=== PATIENT | male | born 1955 | race Caucasian/White ===

== ENCOUNTER 2016-06-08 13:34 | Inpatient (IN) | payer BC ==
[2016-06-08] VITALS (9 sets, daily range): BP systolic 99–149; BP diastolic 55–98
[~2016-06-08] VITALS: Ht 180.3 cm; Wt 111.5 kg
[~2016-06-08 13:34] MED LIST: AMBIEN5 MG PO; ANTIVERT25 MG PO; ASPIRIN81 M2 PO; COREG12.5 M1 PO; ENDOCET 5-3251 EACH PO; GARCINIA CAMBO1 EACH PO; GLUCOSAMINE &1 EAC1 PO; LIPITOR10 MG PO; LISINOPRIL10 MG PO; PENTOXIFYLLINE400 MG PO; PROSCAR5 MG PO; ZOFRAN4 MG PO
[2016-06-08 14:04] LABS: HEMATOCRIT 25.9 % (38.0-50.0); MCH 27.4 PG (29.0-34.0); MCHC 31.3 G/DL (30.0-36.0); MCV 87.5 FL (86-99); MEAN PLAT.VOLUME 9.4 uM^3 (9.0-12.4); PLATELET COUNT 211 K/uL (156-360); RBC DIS.WIDTH-CV 13.3 % (11.8-14.6); RBC DIS.WIDTH-SD 42.6 % (39-53); RED BLOOD COUNT 2.96 M/uL (4.00-5.50); WHITE BLOOD COUNT 7.7 K/uL (4.1-10.2)
[2016-06-08 14:13] LABS: CHLORIDE 104 mEq/L (99-109); POTASSIUM 4.5 mEq/L (3.7-5.4); SODIUM 137 mEq/L (136-147)
[2016-06-08 14:15] LABS: GLUCOSE 108 mg/dL (70-99)
[2016-06-08 14:16] LABS: ANION GAP 8 MEQ/L (2-14)
[2016-06-08 14:19] LABS: GFR ESTIMATE (CALCULATED) > 59 mL/min/; UREA NITROGEN (BUN) 20 mg/dL (9-23)
[2016-06-08 14:25] LABS: TROP-I INTERPRETATION NEGATIVE
[2016-06-08] MEDS ORDERED: COREG25 M1 PO (15:29)
[2016-06-08] MEDS ORDERED: LO-DOSE ASPIRIN81 M2 PO (15:29)
[2016-06-08] MEDS ORDERED: SPIRIVA RESPIMAT4 GM IH (15:30)
[2016-06-08] MEDS ORDERED: AMBIEN10 MG PO (15:30)
[2016-06-08 16:24] LABS: TROP-I INTERPRETATION NEGATIVE; TROPONIN-I 0.11 ng/mL (0.0-0.30)
[2016-06-08 21:40] LABS: HEMATOCRIT 26.7 % (38.0-50.0); MCV 86.1 FL (86-99)
[2016-06-08 22:01] LABS: TROP-I INTERPRETATION NEGATIVE; TROPONIN-I 0.09 ng/mL (0.0-0.30)
[2016-06-09] VITALS (7 sets, daily range): BP systolic 95–130; BP diastolic 53–67
[2016-06-09 07:49] LABS: HEMATOCRIT 29.6 % (38.0-50.0); INTER. NORMALIZED RATIO 1.1; MCH 27.2 PG (29.0-34.0); MCHC 31.8 G/DL (30.0-36.0); MCV 85.8 FL (86-99); PLATELET COUNT 179 K/uL (156-360); PROTHROMBIN TIME 11.7 (9.2-11.2); PTT 28.7 (25-32); RBC DIS.WIDTH-CV 13.7 % (11.8-14.6); RBC DIS.WIDTH-SD 42.7 % (39-53); RED BLOOD COUNT 3.45 M/uL (4.00-5.50)
[2016-06-09 08:01] LABS: ANION GAP 12 MEQ/L (2-14); CHLORIDE 104 MEQ/L (99-109); GFR ESTIMATE (CALCULATED) > 59 mL/min/; GLUCOSE 92 mg/dL (70-99); SAMPLE HEMOLYSIS CHECK 0; SAMPLE ICTERIC CHECK 0; SAMPLE LIPEMIA CHECK 0; SODIUM 141 MEQ/L (136-147); UREA NITROGEN (BUN) 15 mg/dL (9-23)
[2016-06-10 00:27] VITALS: BP 107/56
[2016-06-10 04:08] VITALS: BP 78/38
[2016-06-10 05:47] VITALS: BP 80/42
[2016-06-10 07:52] LABS: EOSINOPHIL (%) 1.8 % (0-5); EOSINOPHIL COUNT 0.1 K/uL (0-0.3); HEMATOCRIT 31.6 % (38.0-50.0); IMMATURE GRANULOCYTE (%) 0.4 % (0.0-0.7); INSTRUMENT ABS NEUTROPHIL CT 3.6 K/uL; LYMPHOCYTE COUNT 1.4 K/uL (1.0-2.8); MCH 27.1 PG (29.0-34.0); MCHC 31.3 G/DL (30.0-36.0); MCV 86.6 FL (86-99); MEAN PLAT.VOLUME 10.6 uM^3 (9.0-12.4); MONOCYTE (%) 9.8 % (3-12); MONOCYTE COUNT 0.6 K/uL (0-0.8); NEUTROPHIL (%) 63.4 % (45-76); NEUTROPHIL COUNT 3.6 K/uL (1.8-6.4); PLATELET COUNT 188 K/uL (156-360); RBC DIS.WIDTH-CV 13.5 % (11.8-14.6); RBC DIS.WIDTH-SD 42.9 % (39-53); RED BLOOD COUNT 3.65 M/uL (4.00-5.50); WHITE BLOOD COUNT 5.7 K/uL (4.1-10.2)
[2016-06-10 08:30] LABS: ANION GAP 8 MEQ/L (2-14); CHLORIDE 104 MEQ/L (99-109); GFR ESTIMATE (CALCULATED) > 59 mL/min/; GLUCOSE 99 mg/dL (70-99); POTASSIUM 4.7 MEQ/L (3.7-5.4); SAMPLE HEMOLYSIS CHECK 0; SAMPLE ICTERIC CHECK 0; SAMPLE LIPEMIA CHECK 0; SODIUM 141 MEQ/L (136-147); UREA NITROGEN (BUN) 15 mg/dL (9-23)
[2016-06-10 08:42] VITALS: BP 127/69
[2016-06-10 10:56] VITALS: BP 108/66
[2016-06-10] MEDS ORDERED: PANTOPRAZOLE SO40 MG PO (11:59)
[2016-06-10] MEDS ORDERED: COREG12.5 M1 PO (11:59)
[2016-06-10] MEDS ORDERED: LISINOPRIL5 MG PO (11:59)
== END 2016-06-10 13:00 | disposition home or self-care (01) | DRG 394 ==
LOC: EME 13:34 → 5SOUTH 15:50 → EDOF 15:50 → 5SOUTH 18:31
PROVIDERS: Internal Medicine Gastroenterology; Nurse Practitioner Family; Physician Assistant
DX: K64.9 Unspecified hemorrhoids (principal); K92.2 Gastrointestinal hemorrhage, unspecified; K25.3 Acute gastric ulcer without hemorrhage or perforation; K92.1 Melena; D64.9 Anemia, unspecified; J44.9 Chronic obstructive pulmonary disease, unspecified; I25.10 Atherosclerotic heart disease of native coronary artery without angina pectoris; I10 Essential (primary) hypertension; E78.5 Hyperlipidemia, unspecified; I73.9 Peripheral vascular disease, unspecified; K80.20 Calculus of gallbladder without cholecystitis without obstruction; E66.9 Obesity, unspecified; Z68.34 Body mass index [BMI] 34.0-34.9, adult; G89.29 Other chronic pain; I25.2 Old myocardial infarction; Z95.810 Presence of automatic (implantable) cardiac defibrillator; Z95.1 Presence of aortocoronary bypass graft
CPT/HCPCS: 71020; 80048; 80069; 84484; 85014; 85018; 85025; 85027; 85610; 85730; 86850; 86900; 86901; 86920; 88305; 88342 TC; 93005; 94640; 94640 76; 99281; 99285; C9113; J2250; J3010; J7030; P9016

== ENCOUNTER 2017-02-20 10:44 | Emergency (ER) | payer BC ==
[~2017-02-20] VITALS: Ht 177.8 cm; Wt 112.4 kg
[~2017-02-20 10:44] MED LIST changes: +AMBIEN10 MG PO; +COREG25 M1 PO; +LISINOPRIL5 MG PO; +LO-DOSE ASPIRIN81 M2 PO; +PANTOPRAZOLE SO40 MG PO; +SPIRIVA RESPIMAT4 GM IH
[2017-02-20 12:06] LABS: HEMATOCRIT 30.2 % (38.0-50.0); MCH 27.7 PG (29.0-34.0); MCHC 32.8 G/DL (30.0-36.0); MCV 84.6 FL (86-99); PLATELET COUNT 233 K/uL (156-360); RBC DIS.WIDTH-CV 13.3 % (11.8-14.6); RBC DIS.WIDTH-SD 41.6 % (39-53); RED BLOOD COUNT 3.57 M/uL (4.00-5.50); WHITE BLOOD COUNT 5.5 K/uL (4.1-10.2)
[2017-02-20 12:15] LABS: CHLORIDE 106 mEq/L (99-109); POTASSIUM 4.3 mEq/L (3.7-5.4); SODIUM 140 mEq/L (136-147)
[2017-02-20 12:17] LABS: GLUCOSE 95 mg/dL (70-99)
[2017-02-20 12:18] LABS: ANION GAP 9 MEQ/L (2-14)
[2017-02-20 12:21] LABS: GFR ESTIMATE (CALCULATED) > 59 mL/min/
[2017-02-20 12:22] LABS: UREA NITROGEN (BUN) 17 mg/dL (9-23)
[2017-02-20 12:27] LABS: TROP-I INTERPRETATION NEGATIVE; TROPONIN-I 0.03 ng/mL (0.0-0.30)
[2017-02-20 15:02] LABS: TROP-I INTERPRETATION NEGATIVE; TROPONIN-I 0.03 ng/mL (0.0-0.30)
[2017-02-20 15:11] VITALS: BP 118/63
== END 2017-02-20 15:11 | disposition home or self-care (01) ==
LOC: EME 10:44
PROVIDERS: Emergency Medicine
DX: J06.9 Acute upper respiratory infection, unspecified (principal); R06.00 Dyspnea, unspecified; J44.9 Chronic obstructive pulmonary disease, unspecified; E78.5 Hyperlipidemia, unspecified; I10 Essential (primary) hypertension; Z87.891 Personal history of nicotine dependence; I25.2 Old myocardial infarction; Z95.1 Presence of aortocoronary bypass graft; Z88.0 Allergy status to penicillin
CPT/HCPCS: 71020; 80048; 84484; 85027; 85379; 93005; 99281; 99284